=== PATIENT | female | born 1930 | race Caucasian/White ===

== ENCOUNTER 2017-09-17 19:51 | Emergency (ER) | payer MEDICARE, BC ==
--- NOTE | 2017-09-17 20:17 | Emergency Department Record ---
History of Present Illness - General Chief Complaint: Laceration(s) Stated Complaint: INJ RT LEG Time Seen by Provider: 09/17/17 20:13 Source: Patient Mode of Arrival: Wheelchair Limitations: No limitations - History of Present Illness Initial Commments: 87 yo female presents to ED for evaluation of a trip and fall resulting in skin tear to the right lower extremity. Patient reports that she was able to stand up immediately following the injury, and reports FROM of the foot and ankle on examination. Patient denies other injury on examination, reports that she takes only baby ASA for blood thinner medication. Patient reports that her tetanus is UTD. Onset/Timin -: Minutes(s) Extremity Location: Right: Lower leg Place: Home Context: Accidental Associated Symptoms: None Treatments Prior to Arrival: Bandage - Andrea Coma Scale Eye Response: (4) Open spontaneously Motor Response: (6) Obeys commands Verbal Response: (5) Oriented Sebastian Total: 15 - Related Data Previous Rx's Medication Instructions Recorded Cephalexin [Keflex] 500 mg PO QID #39 cap 09/17/17 Allergies Allergy/AdvReac Type Severity Reaction Status Date / Time shellfish derived Allergy NAUSEA AND Verified 09/17/17 20:10 VOMITING Review of Systems Constitutional: Denies: Chills, Fever, Malaise, Night sweats Eyes: Denies: Eye discharge, Eye pain ENT: Denies: Congestion, Ear pain, Epistaxis Respiratory: Denies: Cough, Dyspnea Cardiovascular: Denies: Chest pain, Dyspnea on exertion Endocrine: Denies: Fatigue, Heat or cold intolerance Gastrointestinal: Denies: Abdominal pain, Nausea, Vomiting Genitourinary: Denies: Incontinence, Retention Musculoskeletal: Denies: Arthralgia, Back pain, Gout, Joint swelling Skin: Reports: Bruising. 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 negative: Conjunctival injection, Periorbital swelling, Periorbital tenderness, Scleral icterus - ENT Ear exam: negative: Auricular hematoma, Auricular trauma Nasal Exam: negative: Active bleeding, Discharge, Dried blood, Foreign body Mouth exam: negative: Drooling, Laceration, Muffled voice, Tongue elevation - Neck Neck exam: Normal inspection. negative: Meningismus, Tenderness - Respiratory Respiratory exam: Normal lung sounds bilaterally. negative: Rales, Respiratory distress, Rhonchi, Stridor - Cardiovascular Cardiovascular Exam: Regular rate, Normal rhythm, Normal heart sounds - GI/Abdominal GI/Abdominal exam: Soft. negative: Rebound, Rigid, Tenderness - Rectal Rectal exam: Deferred - exam: Deferred - Extremities Extremities exam: Tenderness, Other (19 cm curvi-linear laceration to the anterior zamorano on examination resulting from a skin tear. No tendon deficits noted on exmaination.). negative: Calf tenderness, Pedal edema - Back Back exam: Denies: CVA tenderness (R), CVA tenderness (L) - Neurological Neurological exam: Alert, Normal gait, Oriented X3 - Psychiatric Psychiatric exam: Normal affect, Normal mood - Skin Skin exam: Normal color. negative: Abrasion Type of lesion: negative: abrasion Course Vital Signs 09/17/17 20:00 Temperature 97.9 F Pulse Rate [ 82 Pulse Ox Probe] Respiratory 16 Rate Blood Pressure 190/83 [Left Arm] Pulse Ox 98 - Reevaluation(s) Reevaluation #1: 09/17/17 22:13 Procedure Note Laceration #1: 19 cm wound to the anterior right lower extremity was anesthetized with 10 mL Lidocaine with epi 1% solution with good anesthesia. Skin tear was re-approximated using 4-0 Vicryl sutures in an interrupted fashion. #33 sutures were placed to re-approximate the tissue with good overall cosmesis and hemostasis. Patient tolerated the procedure well overall without complications. Procedure Note Laceration #2: 1.5 cm wound to the anterior right lower extremity was anesthetized previously with 10 mL Lidocaine with epi 1% solution (see above) with good anesthesia. Skin tear was re-approximated using 4-0 Vicryl sutures in an interrupted fashion. #2 sutures were placed to re- approximate the tissue with good overall cosmesis and hemostasis. Patient tolerated the procedure well overall without complications. Following procedure completion, wound was wrapped in non-stick wound dressing with strict instructions to follow-up with Dr. Barraza Tuesday for wound re- evaluation and wound clinic referral for further treatment of her lower extremity skin tear. Patient agrees with the plan of care as discussed. Disposition Disposition: Discharge Clinical Impression: Skin tear, Laceration Disposition: Home, Self-Care Condition: (2) Stable Instructions: Laceration (ED) Additional Instructions: Return to ED if your symptoms worsen or if you have any concerns. Allow sutures to dissolve in 21-28 days. Follow-up with Dr. Barraza Tuesday for wound referral. Keflex as directed. Prescriptions: Cephalexin [Keflex] 500 mg PO QID #39 cap Forms: Patient Portal Access Time of Disposition: 22:12 Quality - Quality Measures Quality Measures: N/A - Blood Pressure Screening Does Patient Have Any of the Following: Active Dx of HTN Blood Pressure Classification: Pre-Hypertensive BP Reading Systolic Measurement: 190 Diastolic Measurement: 83 Screening for High Blood Pressure: Patient Exclusion, Hx of HTN [G9744]
[2017-09-17] MEDS ORDERED: CEPHALEXIN 500 MG CAPSULE PO STA (22:12)
== END 2017-09-17 22:55 | disposition home or self-care (01) ==
LOC: ER 19:51
DX: S81.811A Laceration without foreign body, right lower leg, initial encounter (principal); W01.10XA Fall on same level from slipping, tripping and stumbling with subsequent striking against unspecified object, initial encounter; Y92.009 Unspecified place in unspecified non-institutional (private) residence as the place of occurrence of the external cause
CPT/HCPCS: 12006; 99283; 99284

== ENCOUNTER 2017-09-19 13:49 | Emergency (ER) | payer MEDICARE, BC ==
--- NOTE | 2017-09-19 14:11 | Emergency Department Record ---
History of Present Illness - General Chief Complaint: Wound, check Stated Complaint: WOUND REDRESS Time Seen by Provider: 09/19/17 13:56 Mode of arrival: Ambulatory Limitations: No limitations - History of Present Illness Initial Comments: The patient is here for a wound recheck. She suffered a large superficial laceration to the anterior R lower leg 2 days ago. She was unable to see her PCP so she was instructed to come to the ER for a wound redressing. She denies any problems or pain. MD Complaint: Wound re-check Onset/Timin -: Days(s) Initial Visit For: Laceration Returns Today for: Wound recheck, Other Symptoms Since Prior Visit: No new symptoms Associated Symptoms: None - Related Data Previous Rx's Medication Instructions Recorded Cephalexin [Keflex] 500 mg PO QID #39 cap 09/17/17 Allergies Allergy/AdvReac Type Severity Reaction Status Date / Time shellfish derived Allergy NAUSEA AND Verified 09/17/17 20:10 VOMITING Travel Screening - Travel/Exposure Within Last 30 Days Have you traveled within the last 30 days?: No Past Medical History - SOCIAL HISTORY Smoking Status: Never smoker Alcohol Use: None Drug Use: None - RESPIRATORY Hx Respiratory Disorders: No - CARDIOVASCULAR Hx Cardio Disorders: Yes Hx Abnormal EKG: Yes Hx Pacemaker/Defib: Yes - NEURO Hx Neuro Disorders: Yes 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) - GI Hx GI Disorders: No - Hx Genitourinary Disorders: No - ENDOCRINE Hx Endocrine Disorders: No - MUSCULOSKELETAL Hx Musculoskeletal Disorders: Yes Hx Arthritis: Yes - PSYCH Hx Psych Problems: No - HEMATOLOGY/ONCOLOGY Hx Hematology/Oncology Disorders: No Family Medical History Any Significant Family History?: No Physical Exam - General General Appearance: Alert, Cooperative, No acute distress - Head Head exam: Atraumatic, Normocephalic, Normal inspection - Eye Eye exam: Normal appearance, PERRL - Extremities Extremities exam: negative: Normal inspection (There is a large superficial laceration to the anterior R lower leg. There is no surrounding swelling, erythema, or tenderness. It appears to be very clean and without any infection.) - Neurological Neurological exam: Alert, Normal gait. negative: Abnormal gait, Motor sensory deficit Course Vital Signs 09/19/17 13:54 Temperature 97.4 F L Pulse Rate 82 Respiratory 18 Rate Blood Pressure 123/97 Pulse Ox 98 - Reevaluation(s) Reevaluation #1: The patient is to continue the previous wound care instructions and to see her PCP on Wed in 2 days. 09/19/17 14:11 Disposition Disposition: Discharge Clinical Impression: Skin tear Disposition: Home, Self-Care Condition: (1) Good Instructions: Wound Healing and Your Diet (ED) Additional Instructions: Please continue the wound care instructions as previously instructed. Please see your PCP on Wed in 2 days as planned. Return to the ER for any problems. Forms: Patient Portal Access Time of Disposition: 14:12 Quality - Quality Measures Quality Measures: N/A - Blood Pressure Screening View Details: Yes Does Patient Have Any of the Following: No, Active Dx of HTN Blood Pressure Classification: Hypertensive Reading Systolic Measurement: 123 Diastolic Measurement: 97 Screening for High Blood Pressure: Patient Exclusion, Hx of HTN [G9744]
== END 2017-09-19 14:20 | disposition home or self-care (01) ==
LOC: ER 13:49
DX: S81.811A Laceration without foreign body, right lower leg, initial encounter (principal); W01.10XA Fall on same level from slipping, tripping and stumbling with subsequent striking against unspecified object, initial encounter; Y92.009 Unspecified place in unspecified non-institutional (private) residence as the place of occurrence of the external cause
CPT/HCPCS: 99282